=== PATIENT | female | born 1960 | race African-American/Black ===

== ENCOUNTER → 2016-11-01 | Outpatient (CLI) | payer BC, OTHER ==
[~2016-11-01] MED LIST: B/P PILL; BENICAR5 MG PO; COUMADIN5 MG PO; HYDROCHLOROTH12.5 MG PO; LODINE XL PO; PREDNISONE PO; SULAR PO; TOPROL XL PO
== END | disposition home or self-care (01) ==
LOC: CBAR 15:22
DX: Z01.818 Encounter for other preprocedural examination (principal); E66.01 Morbid (severe) obesity due to excess calories
CPT/HCPCS: G0463

== ENCOUNTER → 2016-11-14 | Outpatient (CLI) | payer BC, OTHER ==
--- NOTE | ~2016-11-14 | US98 ---
[facility] A Service of [facility] & [facility] RADIOLOGY TEXT RESULTS PATIENT: ABDIFATAH ANDERSON LOCATION: [facility] : 64 UNIT #: [id number] AGE: [address]: Lori Cabrera MD SEX: F ORDER DR: [id number] [facility] [address] [place], [place] [address] [id number] O MR#: [id number] Acc #: [id number] NAME: ABDIFATAH ANDERSON : 1960 SEX: F STUDY DATE/TIME: 11/14/2016 13:14 UNIT: [facility] ROOM: STUDY DESCRIPTION: US Pelvic Non-OB Complete Attending Physician: Lori Cabrera M.D. Referring Physician: Lori Cabrera M.D. Ordering Physician: Lori Cabrera M.D. Primary Care Physician: Mikayla Penn A.P.R.N. MEDICAL IMAGING REPORT This report is preliminary unless electronic signature is present EXAM Transabdominal and transvaginal pelvic ultrasound. DATE 11/14/2016 HISTORY 56-year-old female with irregular menses. No cycle in 6 months. Symptoms began 10/27/2016. History of uterine cancer in her mother. Last menstrual period 10/27/2016. G-8, P-8. COMPARISON Pelvic ultrasound, 11/13/2014. FINDINGS Transabdominal imaging was performed for generalized visualization of pelvic structures, while transvaginal imaging was performed for more detailed evaluation of the adnexa. Uterus measures approximate 11.8 x 7.4 x 8.6 cm. The myometrium appears somewhat heterogeneous. There are 2 hypoechoic solid-appearing intramural nodules in the mid uterine body consistent with fibroids, the most cephalad measuring 1.6 x 1.5 x 1.4 cm, and the more caudal measuring 1.7 x 1.1 x 1.2 cm. These presumed fibroids are not visualized on the previous 11/13/2014 examination. Heterogeneous echogenicity throughout the uterine myometrium. Endometrial bilayer thickness is somewhat difficult to accurately measure as a result, but the bilayer thickness measures around 6 mm. No fluid is seen within the endometrial canal. No pelvic free fluid is evident. Neither the right nor the left ovary could be visualized either on transabdominally or transvaginal imaging. [facility]. [facility] A Service of [facility] RADIOLOGY TEXT RESULTS PATIENT: ABDIFATAH ANDERSON LOCATION: [facility] : 64 UNIT #: [id number] AGE: [address]: Lori Cabrera MD SEX: F ORDER DR: IMPRESSION 1. Mildly enlarged uterus with heterogeneous myometrium. Two suspected intramural fibroids are seen within the anterior mid uterine body, measuring about 1.6 cm and 1.7 cm, respectively. 2. Endometrial bilayer thickness measures about 6 mm. Patient's menopausal status is not documented on this examination. Please correlate with known menstrual history or menopausal status. 3. No focal endometrial lesions are identified. 4. Neither the right nor the left ovary could be visualized. Dictated by... Kenia Zavala M.D. THIS IS AN ELECTRONICALLY VERIFIED REPORT Kenia Zavala M.D. at 11/15/2016 9:41 AM STEVE/daniel TD: 11/14/2016 16:39 JOB #: [id number] MEDICAL IMAGING REPORT Page 1 of 1 COPY
== END | disposition home or self-care (01) ==
LOC: CWCC 10-30 11:00
DX: N92.6 Irregular menstruation, unspecified (principal); N85.2 Hypertrophy of uterus
CPT/HCPCS: 76830; 76856

== ENCOUNTER → 2016-12-07 | Outpatient (CLI) | payer BC, OTHER | END | disposition home or self-care (01) | LOC: CBAR 12:35 | DX: Z01.818 Encounter for other preprocedural examination (principal); E66.01 Morbid (severe) obesity due to excess calories | CPT/HCPCS: G0463 ==

== ENCOUNTER → 2017-01-05 | Outpatient (CLI) | payer BC, OTHER | END | disposition home or self-care (01) | LOC: CBAR 11:16 | DX: Z01.818 Encounter for other preprocedural examination (principal); E66.01 Morbid (severe) obesity due to excess calories | CPT/HCPCS: G0463 ==